=== PATIENT | female | born 1990 | race Asian ===

== ENCOUNTER 2018-02-14 18:30 | Emergency (ER) | payer OTHER ==
[~2018-02-14] VITALS: Ht 154.9 cm; Wt 45.0 kg
[~2018-02-14 18:30] MED LIST: ALBU18HF INH; BENZ-17 PO; GUAI-103 PO; LEVO750T6 PO
[2018-02-14 18:36] VITALS: BP 115/65
[2018-02-14 19:14] LABS: BASOPHILS # (AUTO) 0.02 x10^3/uL (0-0.1); BASOPHILS % (AUTO) 0 % (0-1); EOSINOPHILS # (AUTO) 0.17 x10^3/uL (0-0.4); EOSINOPHILS % (AUTO) 2 % (1-7); LYMPHOCYTES # (AUTO) 0.72 x10^3/uL (1-3.4); LYMPHOCYTES % (AUTO) 10 % (22-44); MD NO; MEAN CORPUSCULAR HEMOGLOBIN 31.6 pg (27.0-34.8); MEAN CORPUSCULAR HGB CONC 33.9 g/dL (32.4-35.8); MEAN CORPUSCULAR VOLUME 93.2 fL (80-100); MEAN PLATELET VOLUME 8.2 fL (7.4-10.4); MONOCYTES # (AUTO) 0.45 x10^3/uL (0.2-0.8); MONOCYTES % (AUTO) 6 % (2-9); NEUTROPHILS # (AUTO) 6.05 x10^3/uL (1.8-6.8); NEUTROPHILS % (AUTO) 82 % (42-75); PLATELET COUNT 279 x10^3/uL (130-400); RED BLOOD COUNT 4.63 x10^6/uL (3.82-5.3); RED CELL DISTRIBUTION WIDTH 12.8 % (9.6-15.2)
[2018-02-14 19:22] LABS: ALANINE AMINOTRANSFERASE 27 U/L (12-78); ANION GAP 7 mmol/L (5-15); CALCIUM 8.6 mg/dL (8.5-10.1); CHLORIDE 106 mmol/L (98-107); CREATININE 0.72 mg/dL (0.55-1.02)
[2018-02-14 19:26] LABS: MICROSCOPIC NOT IND
[2018-02-14 19:26] LABS: ALKALINE PHOSPHATASE 46 U/L (45-117); BILIRUBIN,TOTAL 1.6 mg/dL (0.2-1.0)
[2018-02-14] MEDS ORDERED: ONDANSETRON ODT 4 MG ONE (19:26)
[2018-02-14 19:29] LABS: CULTURE INDICATED? NO
[2018-02-14] MEDS ORDERED: ONDANSETRON ODT 4 MG PO ONE (19:30)
[2018-02-14] MEDS ORDERED: DIPH,PERTUSS(ACELL),TET VAC/PF 0.5 ML IM-VACC ONE (20:31)
== END 2018-02-14 21:09 | disposition home or self-care (01) ==
LOC: ED 20:45
DX: R10.84 Generalized abdominal pain (principal)
CPT/HCPCS: 36415; 74018; 76700; 80053; 81003; 83690; 84703; 85025; 99285; Q0162

== ENCOUNTER 2018-08-20 18:28 | Emergency (ER) | payer OTHER ==
[~2018-08-20] VITALS: Ht 154.9 cm; Wt 45.2 kg
[2018-08-20 18:32] VITALS: BP 112/77
[2018-08-20 19:12] LABS: RAPID INFLUENZA A POSITIVE (Negative); RAPID INFLUENZA B Negative (Negative)
== END 2018-08-20 19:49 | disposition home or self-care (01) ==
LOC: ED 19:45
DX: J09.X2 Influenza due to identified novel influenza A virus with other respiratory manifestations (principal)
CPT/HCPCS: 71046; 87400; 99284

== ENCOUNTER → 2020-04-27 | Outpatient (CLI) | payer BC ==
[2020-04-27 10:25] LABS: BASOPHILS # (AUTO) 0.03 x10^3/uL (0-0.1); BASOPHILS % (AUTO) 1 % (0-1); EOSINOPHILS # (AUTO) 0.27 x10^3/uL (0-0.4); EOSINOPHILS % (AUTO) 5 % (1-7); LYMPHOCYTES # (AUTO) 1.61 x10^3/uL (1-3.4); LYMPHOCYTES % (AUTO) 31 % (22-44); MD NO; MEAN CORPUSCULAR HEMOGLOBIN 31.4 pg (27.0-34.8); MEAN CORPUSCULAR HGB CONC 33.2 g/dL (32.4-35.8); MEAN CORPUSCULAR VOLUME 94.6 fL (80-100); MEAN PLATELET VOLUME 8.3 fL (7.4-10.4); MONOCYTES % (AUTO) 6 % (2-9); NEUTROPHILS # (AUTO) 2.94 x10^3/uL (1.8-6.8); NEUTROPHILS % (AUTO) 57 % (42-75); PLATELET COUNT 284 x10^3/uL (130-400); RED BLOOD COUNT 4.24 x10^6/uL (3.82-5.3); RED CELL DISTRIBUTION WIDTH 13.1 % (9.6-15.2)
[2020-04-27 10:28] LABS: ALANINE AMINOTRANSFERASE 21 U/L (12-78); ALBUMIN 4.2 g/dL (3.4-5.0); ANION GAP 7 mmol/L (5-15); CALCIUM 8.8 mg/dL (8.5-10.1); CHLORIDE 111 mmol/L (98-107); CREATININE 0.66 mg/dL (0.55-1.02)
[2020-04-27 10:31] LABS: ALKALINE PHOSPHATASE 40 U/L (45-117); BILIRUBIN,TOTAL 0.7 mg/dL (0.2-1.0); TOTAL PROTEIN 7.9 g/dL (6.4-8.2)
== END | disposition home or self-care (01) ==
LOC: LAB 09:55
PROVIDERS: ATTEND Physician Assistant
DX: R10.11 Right upper quadrant pain (principal)
CPT/HCPCS: 36415; 80053; 85025

== ENCOUNTER → 2020-06-04 | Outpatient (CLI) | payer BC ==
[~2020-06-04] MED LIST changes: +SINCALIDE (KINEVAC) 5 MCG ONE
== END | disposition home or self-care (01) ==
LOC: RAD 11:26
PROVIDERS: ATTEND Physician Assistant
DX: E87.8 Other disorders of electrolyte and fluid balance, not elsewhere classified (principal); R10.11 Right upper quadrant pain
CPT/HCPCS: 78227; A9537; J2805